=== PATIENT | male | born 1970 | race Caucasian/White ===

== ENCOUNTER 2020-10-29 14:09 | Inpatient (IN) | payer MEDICARE, OTHER ==
[~2020-10-29] VITALS: Ht 175.3 cm; Wt 69.0 kg
[2020-10-29] MEDS ORDERED: Prinivil10 MG PO (14:55)
[2020-10-29] MEDS ORDERED: GABA800 PO (14:56)
[2020-10-29 15:55] LABS: BASOPHILS ABSOLUTE AUTO 0.03 K/mm3 (0.00-0.23); BASOPHILS PERCENT AUTO 0 % (0-2); EOSINOPHILS ABSOLUTE AUTO 0.01 K/mm3 (0.00-0.68); EOSINOPHILS PERCENT AUTO 0 % (0-6); Hematocrit 49.7 % (37.0-53.0); Hemoglobin 16.9 g/dL (13.5-17.5); IMMATURE GRAN ABSOLUTE AUTO 0.01 K/mm3 (0.00-0.10); IMMATURE GRAN PERCENT AUTO 0 % (0-1); LYMPHOCYTES ABSOLUTE AUTO 0.48 K/mm3 (0.84-5.20); LYMPHOCYTES PERCENT AUTO 7 % (21-46); MONOCYTES ABSOLUTE AUTO 0.38 K/mm3 (0.16-1.47); MONOCYTES PERCENT AUTO 6 % (4-13); Mean Corpuscular HGB 35.1 pg (26.0-34.0); Mean Corpuscular Volume 103 fL (80-100); Mean Platelet Volume 11.2 fL (9.1-12.4); NEUTROPHILS ABSOLUTE AUTO 5.81 K/mm3 (1.96-9.15); NEUTROPHILS PERCENT AUTO 87 % (41-73); Platelet Count 107 K/mm3 (150-400); RDW Coefficient Variation 13.2 % (11.7-14.2); Red Blood Cell Count 4.81 M/mm3 (4.30-5.90); White Blood Cell Count 6.72 K/mm3 (4.00-11.30)
[2020-10-29 16:10] LABS: Alanine Aminotransfer (ALT/SGP 110 U/L (12-78); Albumin, Blood 3.8 g/dL (3.4-5.0); Albumin/Globulin Ratio 1.2 (0.8-1.8); Alk Phos 79 U/L (50-136); Anion Gap 10 mmol/L (6-16); Aspartate Aminotrans (AST/SGOT 144 U/L (12-37); Bilirubin, Total 0.4 mg/dL (0.1-1.0); Blood Urea Nitrogen 4 mg/dL (8-24); Bun/Creatinine Ratio 7.2 (12.0-20.0); CO2, Blood 24 mmol/L (21-32); Calcium, Blood 8.3 mg/dL (8.5-10.1); Chloride, Blood 106 mmol/L (98-108); Creatinine, Blood 0.55 mg/dL (0.60-1.20); Globulin, Blood 3.3 g/dL (2.2-4.0); Glomerular Filtration Rate >60 (60-); Glucose, Blood 108 mg/dL (70-99); Potassium, Blood 3.1 mmol/L (3.5-5.5); Sodium, Blood 140 mmol/L (136-145); Total Protein, Blood 7.1 g/dL (6.4-8.2)
[2020-10-29] MEDS ORDERED: DOXE10 PO (17:40)
[2020-10-29] MEDS ORDERED: RESTORIL30 M1 PO (17:41)
[2020-10-29] MEDS ORDERED: IBU800 M1 PO (17:41)
[2020-10-29] MEDS ORDERED: QUETIAPINE FUM400 M2 PO (17:42)
--- NOTE | 2020-10-29 23:00 | NUR ---
PCU ADMIT PT BROUGHT TO PCU-03 BY [facility] FROM ER @ APPROX 2200. PT DROWSY. SLID FROM [facility] TO PCU BED W/ 3 PERSON ASSIST. PT JERKS AWAKE WHEN WOKEN. PT TREMULOUS, C/O HEADACHE, NAUSEA & "ITCHING ALL OVER". SPOUSE ACCOMPANYING PT FOR ASSISTANCE W/ ADMISSION HX. PT REPORTS NOT HAVING EATEN IN 3 DAYS D/T "I HAVEN'T BEEN ABLE TO KEEP ANYTHING DOWN." PT VSS. SPO2 > 90% ON RA. MONITOR SHOWING SR, HR 110's. LR GTT INFUSING PER ORDERS. WILL MONITOR/MEDICATE CIWA.
--- NOTE | 2020-10-30 04:34 | NUR ---
ABD PAIN / CALL TO MD PT REPORTING ABD PAIN, REQUESTING PAIN MEDICATION. CALL TO MD BROOKLYN Pereira/ ORDER FOR PRN IV FENTANYL (SEE ORDER). UPON ATTEMPT TO GIVE PT PRN FENTANYL PT STATING "FENTANYL DOESN'T DO ANYTHING. I MIGHT WELL TAKE A TYLENOL. I TAKE DILAUDID. IT'S NOT A PREFERENCE, IT'S A PHYSICAL ANATOMICAL NEED." CALL TO MD BROOKLYN Pereira/ NEW ORDER FOR PRN IV DILAUDID (SEE ORDER).
[2020-10-30 04:38] LABS: BASOPHILS ABSOLUTE AUTO 0.02 K/mm3 (0.00-0.23); BASOPHILS PERCENT AUTO 0 % (0-2); EOSINOPHILS ABSOLUTE AUTO 0.02 K/mm3 (0.00-0.68); EOSINOPHILS PERCENT AUTO 0 % (0-6); Hematocrit 47.8 % (37.0-53.0); IMMATURE GRAN ABSOLUTE AUTO 0.03 K/mm3 (0.00-0.10); IMMATURE GRAN PERCENT AUTO 0 % (0-1); LYMPHOCYTES ABSOLUTE AUTO 1.07 K/mm3 (0.84-5.20); LYMPHOCYTES PERCENT AUTO 13 % (21-46); MONOCYTES ABSOLUTE AUTO 0.56 K/mm3 (0.16-1.47); MONOCYTES PERCENT AUTO 7 % (4-13); Mean Corpuscular HGB 35.1 pg (26.0-34.0); Mean Corpuscular HGB Conc 35.6 g/dL (31.5-36.5); Mean Corpuscular Volume 99 fL (80-100); Mean Platelet Volume 11.2 fL (9.1-12.4); NEUTROPHILS ABSOLUTE AUTO 6.68 K/mm3 (1.96-9.15); NEUTROPHILS PERCENT AUTO 80 % (41-73); Platelet Count 104 K/mm3 (150-400); RDW Coefficient Variation 12.9 % (11.7-14.2); RDW Standard Deviation 46.7 fL (35.1-46.3); Red Blood Cell Count 4.85 M/mm3 (4.30-5.90); White Blood Cell Count 8.38 K/mm3 (4.00-11.30)
[2020-10-30 04:52] LABS: Alanine Aminotransfer (ALT/SGP 87 U/L (12-78); Albumin, Blood 3.6 g/dL (3.4-5.0); Albumin/Globulin Ratio 1.1 (0.8-1.8); Alk Phos 78 U/L (50-136); Anion Gap 6 mmol/L (6-16); Aspartate Aminotrans (AST/SGOT 93 U/L (12-37); Bilirubin, Total 0.8 mg/dL (0.1-1.0); Blood Urea Nitrogen 3 mg/dL (8-24); Bun/Creatinine Ratio 5.6 (12.0-20.0); CO2, Blood 28 mmol/L (21-32); Calcium, Blood 8.5 mg/dL (8.5-10.1); Chloride, Blood 102 mmol/L (98-108); Creatinine, Blood 0.54 mg/dL (0.60-1.20); Globulin, Blood 3.2 g/dL (2.2-4.0); Glomerular Filtration Rate >60 (60-); Glucose, Blood 107 mg/dL (70-99); Magnesium, Blood 1.4 mg/dL (1.6-2.4); Potassium, Blood 3.4 mmol/L (3.5-5.5); Sodium, Blood 136 mmol/L (136-145); Total Protein, Blood 6.8 g/dL (6.4-8.2)
--- NOTE | 2020-10-30 06:47 | NUR ---
SHIFT SUMMARY PT IRRITABLE. VSS. SPO2 > 92% ON RA. MONITOR SHOWING SR-ST, HR 80's-110's. PT MEDICATED FOR CIWA PER EMAR W/ PRN IV ATIVAN & PO LIBRIUM, SEE EMAR. PT C/O ABD PAIN, MEDICATED W/ PRN IV DILAUDID W/ PT REPORT OF IMPROVEMENT. LR GTT INFUSING PER ORDERS. PT W/ VERY UNSTEADY GAIT REQUIRING 1 PERSON ASSIST FOR AMBULATION. NO EVENTS OVER NIGHT.
--- NOTE | 2020-10-30 12:21 | NUR ---
The pt has been sleeping in between doses of dilaudid and doses of ativan. He was nodding off to sleep during multiple IV attempts this morning, and sleeping during times when he was not being actively engaged in conversation. Continued to request pain medication, despite his drowsy state. At approx 11:30 am he again requested pain medication, but at being told by the SYSTEMS ENGINEER that it was not yet time to get any, he stated that he wanted to leave the hospital right away. I asked him if he would like to talk to the doctor, and perhaps get pain medication, but he stated that he wanted to leave and pulled out his IV while I was calling to talk with the resident physician. He refused to sign the AMA papers; charge nurse was present at the time in thept's room and co signed with me. The pt was directed to where the exit was, and resident physician arrived and spoke briefly with the pt as he was walking out the door of his room PCU 3.
== END 2020-10-30 11:44 | disposition left against medical advice (07) | DRG 439 ==
LOC: ER 14:09 → PCU 18:34
PROVIDERS: Family Medicine; Physician Assistant; ADMIT Hospitalist
DX: K85.20 Alcohol induced acute pancreatitis without necrosis or infection (principal); F10.239 Alcohol dependence with withdrawal, unspecified; F17.210 Nicotine dependence, cigarettes, uncomplicated; D69.59 Other secondary thrombocytopenia; I10 Essential (primary) hypertension; K80.80 Other cholelithiasis without obstruction; Z53.29 Procedure and treatment not carried out because of patient's decision for other reasons; Z88.8 Allergy status to other drugs, medicaments and biological substances; Z79.899 Other long term (current) drug therapy; Z98.890 Other specified postprocedural states
CPT/HCPCS: 36415; 74176; 80053; 82330; 83615; 83690; 83735; 85025; 93005; 93010; 96365; 96366; 96375; 96376; 99285-25; A9270; J1170; J1650; J2060; J2405; J3411; J3475; J7042; J7120

== ENCOUNTER 2021-01-01 17:43 | Emergency (ER) | payer MEDICARE, OTHER ==
[~2021-01-01] VITALS: Ht 177.8 cm; Wt 74.8 kg
[~2021-01-01 17:43] MED LIST: DOXE10 PO; GABA800 PO; IBU800 M1 PO; Prinivil10 MG PO; QUETIAPINE FUM400 M2 PO; RESTORIL30 M1 PO
[2021-01-01 18:21] LABS: BASOPHILS ABSOLUTE AUTO 0.04 K/mm3 (0.00-0.23); BASOPHILS PERCENT AUTO 1 % (0-2); EOSINOPHILS ABSOLUTE AUTO 0.14 K/mm3 (0.00-0.68); EOSINOPHILS PERCENT AUTO 3 % (0-6); Hematocrit 37.7 % (37.0-53.0); Hemoglobin 13.3 g/dL (13.5-17.5); IMMATURE GRAN ABSOLUTE AUTO 0.01 K/mm3 (0.00-0.10); IMMATURE GRAN PERCENT AUTO 0 % (0-1); LYMPHOCYTES ABSOLUTE AUTO 1.61 K/mm3 (0.84-5.20); LYMPHOCYTES PERCENT AUTO 37 % (21-46); MONOCYTES ABSOLUTE AUTO 0.35 K/mm3 (0.16-1.47); MONOCYTES PERCENT AUTO 8 % (4-13); Mean Corpuscular HGB 35.2 pg (26.0-34.0); Mean Corpuscular HGB Conc 35.3 g/dL (31.5-36.5); Mean Corpuscular Volume 100 fL (80-100); Mean Platelet Volume 12.1 fL (9.1-12.4); NEUTROPHILS ABSOLUTE AUTO 2.17 K/mm3 (1.96-9.15); NEUTROPHILS PERCENT AUTO 50 % (41-73); Platelet Count 79 K/mm3 (150-400); RDW Coefficient Variation 12.4 % (11.7-14.2); RDW Standard Deviation 45.8 fL (35.1-46.3); Red Blood Cell Count 3.78 M/mm3 (4.30-5.90); White Blood Cell Count 4.32 K/mm3 (4.00-11.30)
[2021-01-01 19:12] LABS: Alanine Aminotransfer (ALT/SGP 172 U/L (12-78); Albumin, Blood 3.7 g/dL (3.4-5.0); Albumin/Globulin Ratio 1.1 (0.8-1.8); Alk Phos 78 U/L (50-136); Anion Gap 10 mmol/L (6-16); Aspartate Aminotrans (AST/SGOT 178 U/L (12-37); Bilirubin, Total 0.8 mg/dL (0.1-1.0); Blood Urea Nitrogen 7 mg/dL (8-24); Bun/Creatinine Ratio 11.5 (12.0-20.0); CO2, Blood 27 mmol/L (21-32); Calcium, Blood 9.4 mg/dL (8.5-10.1); Chloride, Blood 103 mmol/L (98-108); Creatinine, Blood 0.61 mg/dL (0.60-1.20); Globulin, Blood 3.3 g/dL (2.2-4.0); Glomerular Filtration Rate >60 (60-); Glucose, Blood 99 mg/dL (70-99); Potassium, Blood 3.9 mmol/L (3.5-5.5); Sodium, Blood 140 mmol/L (136-145)
[2021-01-01] MEDS ORDERED: CHLO25 PO (20:33)
== END 2021-01-01 21:48 | disposition home or self-care (01) ==
LOC: ER 17:43
PROVIDERS: Student in an Organized Health Care Education/Training Program
DX: F10.139 Alcohol abuse with withdrawal, unspecified (principal); I10 Essential (primary) hypertension; F17.210 Nicotine dependence, cigarettes, uncomplicated; Z88.8 Allergy status to other drugs, medicaments and biological substances; Z79.899 Other long term (current) drug therapy
CPT/HCPCS: 36415; 80053; 83690; 85025; 96361; 96374; 96375; 99285-25; J2060; J2405; J7030